=== PATIENT | male | born 1980 | race Two or more races ===

== ENCOUNTER 2017-10-10 17:04 | Emergency (ER) | payer SELFPAY ==
[~2017-10-10] VITALS: Ht 167.6 cm; Wt 63.5 kg
--- NOTE | 2017-10-10 17:15 | NUR ---
PRESENTS TO ER C/O OFF/ON CHEST PAIN, STARTED 2 HOURS AGO, DENIES CHEST PAIN AT THIS MOMENT. C/O DIZZINESS, FEELING WEAK, POOR APETITE. "PASSED OUT" 2X IN THE LAST 10 DAYS. A/OX 4 AT THIS TIME. BREATHING EVEN AND UNLABORED. NO SOB, NAD, VITALS STABLE. SAFETY AND COMFORT MEASURES IN PLACE. AWAITING MD ORDERS.
[2017-10-10] MEDS ORDERED: LORAZEPAM 1 MG TABLET ONE (17:39)
--- NOTE | 2017-10-10 17:45 | NUR ---
NEW IV STARTED ON RAC, 20G. BLOOD DRAWN AND SENT TO LAB.
--- NOTE | 2017-10-10 17:56 | NUR ---
PATIENT TAKEN TO CT VIA STRETCHER.
[2017-10-10] MEDS ORDERED: LORAZEPAM 1 MG TABLET PO ONE (18:00)
[2017-10-10] MEDS ORDERED: IV NS 0.9% 1,000 ML BAG IV ONE (18:00)
[2017-10-10 18:03] LABS: CALCIUM, SERUM 9.5 mg/dL (8.5-10.1); CARBON DIOXIDE 25 mmol/L (21-32); CHLORIDE 103 mmol/L (98-107); CREATININE 0.8 mg/dL (0.6-1.3); GLUCOSE 98 mg/dL (74-106); POTASSIUM 4.2 mmol/L (3.5-5.1); SODIUM SERUM 135 mmol/L (136-145); UREA NITROGEN, BLOOD 13 mg/dL (7-18)
--- NOTE | 2017-10-10 18:03 | NUR ---
PATIENT RETURNED FROM CT IN STABLE CONDITION.
[2017-10-10 18:07] LABS: INR 1.02 (0.85-1.15)
[2017-10-10 18:09] LABS: ALANINE AMINOTRANSFERASE 39 U/L (12-78); ALBUMIN 4.1 g/dL (3.4-5.0); ALKALINE PHOSPHATASE 56 U/L (46-116); ASPARTATE AMINOTRANSFERASE 15 U/L (15-37); BILIRUBIN,DIRECT 0.1 mg/dL (0.0-0.2); BILIRUBIN,TOTAL 0.3 mg/dL (0.2-1.0); TOTAL PROTEIN, SERUM 7.6 g/dL (6.4-8.2)
[2017-10-10 18:12] LABS: TROPONIN I < 0.017 ng/mL (0.00-0.056)
[2017-10-10 18:14] LABS: WHITE BLOOD COUNT (AUTO) 8.9 K/uL (4.3-11.0)
[2017-10-10 18:15] LABS: HEMOGLOBIN 15.9 g/dL (13.5-17.5); RED BLOOD CELL COUNT(AUTO) 5.03 MIL/uL (4.5-6.0)
[2017-10-10 18:16] LABS: BASOPHILS % (AUTO) 0.5 % (0.0-2.0); EOSINOPHILS % (AUTO) 3.1 % (0.0-6.0); HEMATOCRIT 47 % (39-51); LYMPHOCYTES # (AUTO) 2.3 /CMM (0.8-4.8); MEAN CORPUSCULAR HEMOGLOBIN 32 PG (26.0-33.0); MEAN CORPUSCULAR HGB CONC 34 g/dl (31.0-36.0); MEAN CORPUSCULAR VOLUME 93 fL (80-96); MONOCYTES # (AUTO) 0.6 /CMM (0.1-1.30); MONOCYTES % (AUTO) 7.1 % (2.0-12.0); NEUTROPHILS # (AUTO) 5.6 /CMM (1.8-8.9); NEUTROPHILS % (AUTO) 63.3 % (43.0-81.0); PLATELET COUNT (AUTO) 208 /CMM (150-450); RDW COEFFICIENT OF VARIATION 13.1 (11.5-15.0)
[2017-10-10 18:17] LABS: BASOPHILS # (AUTO) 0.1 /CMM (0.0-0.2)
--- NOTE | 2017-10-10 19:21 | NUR ---
REPORT GIVEN TO JACINTO CLARKE FOR [facility].
--- NOTE | 2017-10-10 19:30 | NUR ---
received report from olena quiñones. pt has signed dc papers, but is sleeping in bed. pt is waiting to be picked up.
--- NOTE | 2017-10-10 19:45 | NUR ---
pt is very lethargic. not responding fully to questions. still waiting for his brother to come pick him up.
--- NOTE | 2017-10-10 20:45 | NUR ---
pt's brother is on his way now. per pt said he is ok to wait in the lobby for his brother to come pick him up. all iv and ID band removed. Patient discharged to home in stable condition. Written and verbal after care instructions given. Patient verbalizes understanding of instruction.
[2017-10-10 21:01] VITALS: BP 112/69
== END 2017-10-10 20:45 | disposition home or self-care (01) ==
LOC: ER 17:07
DX: R55 Syncope and collapse (principal); R07.89 Other chest pain; F17.200 Nicotine dependence, unspecified, uncomplicated; Z86.711 Personal history of pulmonary embolism; Z86.718 Personal history of other venous thrombosis and embolism
CPT/HCPCS: 36415; 70450; 71045; 80048; 80076; 84484; 85025; 85730; 93005; 96360; 99285; A4606; J7030; Z7610

== ENCOUNTER 2018-08-06 01:25 | Emergency (ER) | payer SELFPAY ==
[~2018-08-06] VITALS: Ht 172.7 cm; Wt 78.9 kg
[2018-08-06 01:35] VITALS: BP 119/78
--- NOTE | 2018-08-06 02:15 | NUR ---
PT LEFT WITHOUT DISCHARGE INSTRUCTIONS
== END 2018-08-06 02:17 | disposition home or self-care (01) ==
LOC: ER 01:28
DX: D17.0 Benign lipomatous neoplasm of skin and subcutaneous tissue of head, face and neck (principal); Z98.890 Other specified postprocedural states
CPT/HCPCS: Z7502